=== PATIENT | male | born 1980 | race Caucasian/White ===

== ENCOUNTER → 2017-02-17 | Outpatient (CLI) | payer OTHER ==
[~2017-02-17] MED LIST: AMMONIUM LACTA140 GM TP; ASPIR 8181 MG PO; CLARITIN10 MG PO; CRESTOR40 MG PO; FISH OIL 1,0001 EAC3 PO; FORTAMET500 MG PO; GABAPENTIN800 MG PO; ISOSORBIDE MONO30 MG PO; LORTAB 5-325 M1 EACH PO; LYRICA300 MG PO; METOPROLOL SUCC25 MG PO; OMEPRAZOLE20 M1 PO; PERCOCET 10-321 EACH PO; PLAVIX 75 MG TA75 MG PO; SYMBICORT 16010.2 GM INH; VITAMIN D10000 UNIT PO
[2017-02-17 09:14] LABS: HEMOGLOBIN 15.6 gm/dl (14.0-17.5); RED BLOOD COUNT 5.24 M/UL (4.20-5.50); WHITE BLOOD COUNT 10.8 K/UL (4.5-11.0)
[2017-02-17 09:28] LABS: BUN/CREATININE RATIO 13 (0-10)
== END ==
LOC: OPSV2 08:00
PROVIDERS: Orthopaedic Surgery
DX: Z01.812 Encounter for preprocedural laboratory examination (principal); Z01.810 Encounter for preprocedural cardiovascular examination; G56.02 Carpal tunnel syndrome, left upper limb; E11.9 Type 2 diabetes mellitus without complications; I10 Essential (primary) hypertension; J45.909 Unspecified asthma, uncomplicated; I25.10 Atherosclerotic heart disease of native coronary artery without angina pectoris; Z88.5 Allergy status to narcotic agent; Z95.1 Presence of aortocoronary bypass graft
CPT/HCPCS: 36415; 80048; 85027; 93005

== ENCOUNTER → 2017-02-27 | Day surgery (SDC) | payer OTHER ==
[~2017-02-27] VITALS: Ht 188 cm; Wt 128.8 kg
== END | disposition home or self-care (01) ==
LOC: OR 08:15
PROVIDERS: Orthopaedic Surgery
PROC: 01N50ZZ Release Median Nerve, Open Approach (ICD-10-PCS; principal; 2017-02-27 11:45)
DX: G56.02 Carpal tunnel syndrome, left upper limb (principal); E11.9 Type 2 diabetes mellitus without complications; E78.5 Hyperlipidemia, unspecified; J45.909 Unspecified asthma, uncomplicated; I11.9 Hypertensive heart disease without heart failure; E07.9 Disorder of thyroid, unspecified; G89.29 Other chronic pain; M54.9 Dorsalgia, unspecified; I25.10 Atherosclerotic heart disease of native coronary artery without angina pectoris; M19.90 Unspecified osteoarthritis, unspecified site; F17.210 Nicotine dependence, cigarettes, uncomplicated; Z88.5 Allergy status to narcotic agent; Z79.02 Long term (current) use of antithrombotics/antiplatelets; Z79.82 Long term (current) use of aspirin; Z79.891 Long term (current) use of opiate analgesic; Z79.899 Other long term (current) drug therapy; Z95.1 Presence of aortocoronary bypass graft; Z95.5 Presence of coronary angioplasty implant and graft; Z90.89 Acquired absence of other organs
CPT/HCPCS: 82962; J0690; J1100; J2250; J2405; J2765; J3010; J7030; J7120